=== PATIENT | male | born 2000 | race Asian ===

== ENCOUNTER 2021-02-15 20:33 | Emergency (ER) | payer BC ==
[~2021-02-15] VITALS: Ht 177.8 cm; Wt 72.6 kg
--- NOTE | 2021-02-15 20:33 | NUR ---
PT DIOGO ALS. TAKEN TO BED 3
[2021-02-15 20:35] VITALS: BP 140/79
--- NOTE | 2021-02-15 20:35 | NUR ---
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 PT HAS ALLX TO TREE NUTS AND WHILE AT [facility] UNKNOWINGLY CONSUMED FOOD WITH WALNUTS. PT PT HAS HIVES TO TRUNK AND BACK. NO SOB OR WHEEZING. O2 SAT AT 99% RA. MEDHX- DENIES ALLX- TREE NUTS
--- NOTE | 2021-02-15 20:40 | NUR ---
Dr. Wakefield examining patient.
[2021-02-15] MEDS ORDERED: FAMOTIDINE 20 MG/2 ML VIAL IVP ONE (20:45)
[2021-02-15] MEDS ORDERED: methylPREDNISolone SS 125 MG in WATER STERILE 2 ML IV ONE (20:45)
[2021-02-15] MEDS ORDERED: WATER STERILE 10 ML MC ONE (20:57)
[2021-02-15] MEDS ORDERED: methylPREDNISolone SS 125 MG/2 ML VIAL ONE (20:57)
[2021-02-15] MEDS ORDERED: PRED20TA5 PO (21:29)
[2021-02-15] MEDS ORDERED: FAMO-90 PO (21:30)
[2021-02-15] MEDS ORDERED: EPIN1KIT31 IM (21:31)
--- NOTE | 2021-02-15 21:50 | NUR ---
Patient discharged with v/s stable. Written and verbal after care instructions given and explained. Patient alert, oriented and verbalized understanding of instructions. Ambulatory with steady gait. All questions addressed prior to discharge. ID band removed. Patient advised to follow up with PMD. Rx of EPINEPHRINE,FAMOTIDINE, PREDISONE given. Patient educated on indication of medication including possible reaction and side effects. Opportunity to ask questions provided and answered.
[2021-02-15 22:00] VITALS: BP 140/79
== END 2021-02-15 21:50 | disposition home or self-care (01) ==
LOC: MED 20:33
DX: L50.0 Allergic urticaria (principal); Z91.018 Allergy to other foods
CPT/HCPCS: 96374; 96375; 99284; J2930; J3490